=== PATIENT | female | born 1990 | race African-American/Black ===

== ENCOUNTER 2020-07-02 18:06 | Emergency (ER) | payer MEDICAID ==
[~2020-07-02] VITALS: Ht 157.5 cm; Wt 90.7 kg
[2020-07-02 18:08] VITALS: BP_SYST 139
[2020-07-02] MEDS ORDERED: CEPH-568 PO (18:47)
[2020-07-02] MEDS ORDERED: IBUP-1971 PO (18:47)
[2020-07-02 18:57] VITALS: BP_SYST 139
== END 2020-07-02 18:57 | disposition home or self-care (01) ==
LOC: SED 18:06
DX: L02.421 Furuncle of right axilla (principal)
CPT/HCPCS: 99283

== ENCOUNTER 2020-07-10 20:46 | Emergency (ER) | payer MEDICAID ==
[~2020-07-10] VITALS: Ht 162.6 cm; Wt 78.0 kg
[~2020-07-10 20:46] MED LIST: CEPH-568 PO; IBUP-1971 PO
--- NOTE | 2020-07-10 20:49 | NUR ---
ER Dr. BARTH at bedside examining patient.
[2020-07-10 20:56] VITALS: BP_SYST 158
--- NOTE | 2020-07-10 21:21 | NUR ---
Pt ambulatory to bed 3 for evaluation
[2020-07-10 21:46] LABS: BILIRUBIN,URINE NEGATIVE (NEGATIVE); BLOOD, URINE NEGATIVE (NEGATIVE); COLOR,URINE YELLOW (YELLOW); GLUCOSE,URINE NEGATIVE (NEGATIVE); KETONES,URINE NEGATIVE (NEGATIVE); LEUKOCYTE ESTERASE ,URINE NEGATIVE (NEGATIVE); NITRITE, URINE NEGATIVE (NEGATIVE); PROTEIN URINE NEGATIVE (NEGATIVE); UROBILINOGEN,URINE 0.2 (0.2-1.0)
[2020-07-10 21:49] LABS: BASOPHILS % (AUTO) 0.3 % (0.0-2.0); EOSINOPHILS # (AUTO) 0.3 K/uL (0.0-0.4); HEMATOCRIT 35.7 % (36-48); HEMOGLOBIN 11.6 g/dL (12.0-16.0); LYMPHOCYTES # (AUTO) 3.1 K/uL (1.0-5.5); LYMPHOCYTES % (AUTO) 29.1 % (20.5-51.5); MEAN CORPUSCULAR HEMOGLOBIN 24 pg (27-31); MEAN CORPUSCULAR HGB CONC 32 % (32-36); MEAN CORPUSCULAR VOLUME 75 fL (79.0-98.0); MONOCYTES # (AUTO) 0.5 K/uL (0.0-1.0); MONOCYTES % (AUTO) 4.9 % (1.7-9.3); NEUTROPHILS # (AUTO) 6.8 K/uL (1.8-7.7); NEUTROPHILS % (AUTO) 62.7 % (40.0-70.0); PLATELET COUNT (AUTO) 246 K/uL (130-430); RED BLOOD CELL COUNT(AUTO) 4.75 MIL/uL (4.2-6.2); RED CELL DISTRIBUTION WIDTH 17.2 % (9.0-15.0); WHITE BLOOD COUNT (AUTO) 10.8 K/uL (4.8-10.8)
--- NOTE | 2020-07-10 21:49 | NUR ---
PT A&O X4 FROM HOME C/O VAGINAL SPOTTING X4 DAYS & LOWER ABOMDINAL CRAMPING. PT STATES SYMPTOMS COME AND GO. PT STATES SHE IS 5 WEEKS . PT IS DEAF. PT DENIES NAUSEA, VOMITING, FEVER, CHILLS, SOB, CP.
--- NOTE | 2020-07-10 21:50 | NUR ---
Patient transported to radiology(ULTRASOUND) via AMBULATORY, accompanied by
[2020-07-10 22:05] LABS: CLARITY/URINE SLIGHTLY HAZY (CLEAR)
--- NOTE | 2020-07-10 22:05 | NUR ---
Returned from radiology, back to [facility].
[2020-07-10 22:11] LABS: PROTHROMBIN TIME 9.9 SECS (9.5-12.5)
[2020-07-10 22:48] VITALS: BP_SYST 133
--- NOTE | 2020-07-10 22:48 | NUR ---
Patient given written and verbal discharge instructions and verbalizes understanding. ER MD discussed with patient the results and treatment provided. Patient in stable condition. ID arm band removed. NO IV NO Rx given. Patient educated on pain management and to follow up with PMD. Pain Scale 0/10. Opportunity for questions provided and answered. Medication side effect fact sheet provided.
== END 2020-07-10 22:48 | disposition home or self-care (01) ==
LOC: SED 20:46
DX: O20.9 Hemorrhage in early pregnancy, unspecified (principal); Z3A.01 Less than 8 weeks gestation of pregnancy
CPT/HCPCS: 36415; 76802; 81003; 81025; 84702-TC; 85025; 85610-TC; 85730-TC; 86900; 86901; 99284

== ENCOUNTER 2020-07-13 16:09 | Emergency (ER) | payer MEDICAID ==
[~2020-07-13] VITALS: Ht 162.6 cm; Wt 78.0 kg
[2020-07-13 16:19] VITALS: BP_SYST 136
[2020-07-13 16:55] LABS: BILIRUBIN,URINE NEGATIVE (NEGATIVE); BLOOD, URINE 3+ (NEGATIVE); CLARITY/URINE TURBID (CLEAR); GLUCOSE,URINE NEGATIVE (NEGATIVE); KETONES,URINE NEGATIVE (NEGATIVE); LEUKOCYTE ESTERASE ,URINE NEGATIVE (NEGATIVE); NITRITE, URINE NEGATIVE (NEGATIVE); PROTEIN URINE TRACE (NEGATIVE); UROBILINOGEN,URINE 0.2 (0.2-1.0)
[2020-07-13 17:04] LABS: COLOR,URINE BROWN (YELLOW)
[2020-07-13 17:12] LABS: MEAN CORPUSCULAR VOLUME 76 fL (79.0-98.0); WHITE BLOOD COUNT (AUTO) 9.9 K/uL (4.8-10.8)
[2020-07-13 17:22] LABS: BASOPHILS % (AUTO) 0.4 % (0.0-2.0); EOSINOPHILS # (AUTO) 0.4 K/uL (0.0-0.4); EOSINOPHILS % (AUTO) 3.6 % (0.0-4.0); HEMATOCRIT 38.3 % (36-48); HEMOGLOBIN 12.2 g/dL (12.0-16.0); LYMPHOCYTES # (AUTO) 2.5 K/uL (1.0-5.5); LYMPHOCYTES % (AUTO) 25.2 % (20.5-51.5); MEAN CORPUSCULAR HEMOGLOBIN 24 pg (27-31); MEAN CORPUSCULAR HGB CONC 32 % (32-36); MONOCYTES # (AUTO) 0.4 K/uL (0.0-1.0); MONOCYTES % (AUTO) 4.2 % (1.7-9.3); NEUTROPHILS # (AUTO) 6.6 K/uL (1.8-7.7); NEUTROPHILS % (AUTO) 66.6 % (40.0-70.0); PLATELET COUNT (AUTO) 255 K/uL (130-430); RED BLOOD CELL COUNT(AUTO) 5.03 MIL/uL (4.2-6.2)
[2020-07-13 17:28] LABS: CALCIUM 8.6 mg/dL (8.4-11.0); CREATININE 0.86 mg/dL (0.55-1.30); POTASSIUM 3.9 mmol/L (3.5-5.1)
[2020-07-13 17:40] LABS: ALBUMIN 3.1 g/dL (3.4-4.8)
[2020-07-13 17:47] LABS: BACTERIA,URINE FEW /HPF (None Seen); MUCUS,URINE None Seen /LPF (None Seen); RBC,URINE >100 /HPF (0-3); WBC,URINE 0-3 /HPF (0-3)
[2020-07-13 17:58] LABS: TOTAL BILIRUBIN 0.1 mg/dL (0.0-1.0)
[2020-07-13] MEDS ORDERED: cephALEXin 500 MG CAPSULE PO ONE (18:00)
[2020-07-13] MEDS ORDERED: RHO(D) IMMUNE GLOBULIN/MALTOSE 1500 UNITS/1.3 ML (WINHRO) INJ ONE (18:15)
[2020-07-13] MEDS ORDERED: NAPR-690 PO (18:35)
[2020-07-13] MEDS ORDERED: CEPH500C2 PO (18:35)
[2020-07-13 20:17] VITALS: BP_SYST 124
== END 2020-07-13 20:18 | disposition home or self-care (01) ==
LOC: SED 16:09
DX: O03.9 Complete or unspecified spontaneous abortion without complication (principal); Z79.899 Other long term (current) drug therapy; Z3A.01 Less than 8 weeks gestation of pregnancy
CPT/HCPCS: 36415; 76801; 80053; 81000; 81025; 84702; 85025; 86886; 86900; 86901; 96372; 99284; J2790; J2792